=== PATIENT | female | born 1995 | race Caucasian/White ===

== ENCOUNTER 2018-02-10 23:13 | Emergency (ER) | payer SELFPAY ==
[~2018-02-10] VITALS: Ht 170.2 cm; Wt 65.0 kg
[2018-02-10 23:16] VITALS: BP 128/73; PULSE 83; RESP 20; TEMP 98.2; O2SAT 100
[2018-02-11 01:03] LABS: BACTERIA, URINE FEW /hpf; BILIRUBIN, URINE NEG (NEG); BLOOD, URINE MOD (NEG); GLUCOSE,URINE NEG (NEG); KETONE, URINE NEG (NEG); MUCUS URINE FEW /lpf (OCC); NITRITE,URINE NEG (NEG); PH, URINE 6.5 (5.0-8.5); SQUAMOUS EPITHELIAL CELL URINE 5 /hpf (0-5); URINE COLOR YELLOW (YELLW/STRAW); URINE LEUKOCYTE ESTERASE LARGE (NEG)
== END 2018-02-11 00:59 | disposition left against medical advice (07) ==
LOC: NEPD 23:13
DX: M54.5 Low back pain (principal); B96.20 Unspecified Escherichia coli [E. coli] as the cause of diseases classified elsewhere
CPT/HCPCS: 81001; 87077; 87086; 87186; 99281